=== PATIENT | female | born 1950 | race Caucasian/White ===

== ENCOUNTER → 2018-01-16 | Day surgery (SDC) | payer OTHER ==
[2018-01-09 13:27] VITALS: Ht 161.3 cm; Wt 78.2 kg
[~2018-01-16] VITALS: Ht 161.3 cm; Wt 78.2 kg
[~2018-01-16] MED LIST: APR25 PO; CALC0.2510 PO; CALC667C4 PO; CARV6.252 PO; CMD5 PO; FENTANYL CITRATE INJ 50 MCG/1 ML 2 ML VIAL ONE; INSDGI SC; ISOS30TA35 PO; LIDOCAINE HCL 2% 2 ML VIAL (20MG/ML) ONE; MIDAZOLAM HCL 1 MG/ML 2ML VIAL ONE; MINO50CA3 PO; MULT-506 PO; PROPOFOL IV EMULSION 10 MG/ML 20 ML VIAL IV ONE; TORS100T13 PO
[2018-01-16 09:48] VITALS: TEMP 36.6
--- NOTE | 2018-01-16 11:11 | Endo History and Physical ---
History & Physical Date of Service: Jan 16, 2018. Chief Complaint: history of polyps Referring Physician: Paula Cheung PA-C History of Present Illness h/o polyps Past Surgical History Hx Cardiac Surgery: Yes (HEART CATH/NO STENTS) Hx Internal Defibrillator: Yes (IMPLANTED) Hx Pacemaker: Yes (IMPLANTED) Hx Abdominal Surgery: Yes (GASTRIC BYPASS, APPENDECTOMY, CHOLECYSTECTOMY, BLEEDING ULCER CLIP) Hx Post-Op Nausea and Vomiting: Yes Hx Cancer Surgery: Yes (ERIKA BSO) Hx Thoracic Surgery: No Hx Orthopedic: Yes (RT CTR, RT SHOULDER ARTHROSCOPY) Hx Urinary Tract Surgery: No Family History Esophogeal CA Social History Smoking Status: Former Smoker Hx Substance Use: No Hx Alcohol Use: No Allergies Coded Allergies: Cerivastatin (Verified Allergy, Mild, JITTERY, 01/16/18) Doxycycline (Verified Allergy, Mild, STOMACH PAIN, 01/16/18) Acetaminophen (Verified Allergy, Unknown, SWELLING, 01/16/18) Cephalexin (Verified Allergy, Unknown, RASH, ITCHING, 01/16/18) Cholestyramine (Verified Allergy, Unknown, CONSTIPATION, 01/16/18) Colesevelam (Verified Allergy, Unknown, CONSTIPATION, 01/16/18) Ezetimibe (Verified Allergy, Unknown, PAINFUL LEGS, 01/16/18) Fenofibrate (Verified Allergy, Unknown, EDEMA AND MUSCLE PAIN, 01/16/18) Fentanyl (Verified Allergy, Unknown, N/V, 01/16/18) FENTANYL AND RELATED Gemfibrozil (Verified Allergy, Unknown, ROQUE, MUSCLE CRAMPS, PAIN, SWELLING , 01/16/18) Hydrocodone (Verified Allergy, Unknown, LETHARGY, 01/16/18) Lisinopril (Verified Allergy, Unknown, PANCREATITIS, 01/16/18) Losartan (Verified Allergy, Unknown, HIGH K LEVEL, 01/16/18) Lovastatin (Verified Allergy, Unknown, MUSCLE ACHES, 01/16/18) Niacin (Verified Allergy, Unknown, FLUSHING, 01/16/18) Oxycodone (Verified Allergy, Unknown, SWELLING, 01/16/18) Penicillins (Verified Allergy, Unknown, RASH, 01/16/18) [place] (Verified Allergy, Unknown, SNEEZING AND RASH, 01/16/18) Simvastatin (Verified Allergy, Unknown, SWELLING, MUSCLE ACHES, 01/16/18) Sitagliptin (Verified Allergy, Unknown, PALPITATIONS, 01/16/18) Tetanus Toxoid (Verified Allergy, Unknown, REDNESS/SWELLING AT INJ SITE, ) Tomato (Verified Allergy, Unknown, RASH, 01/16/18) Morphine (Verified Adverse Reaction, Unknown, VOMITING, 01/16/18) Uncoded Allergies: YELLOW JACKETS VENOM (Allergy, Mild, LOCALIZED SWELLING, 09/05/13) TYLENOL W/ CODEINE (Allergy, Unknown, ITCHING, SWELLING, 01/09/18) ADHESIVE TAPE (Adverse Reaction, Unknown, VERY FRAGILE SKIN, 01/09/18) Current Medications Reported Home Medications Medications Dose Route/Sig Max Daily Dose Days Date Category Dose Instructions Phoslo 667 Mg (Calcium Acetate) 667 Mg Cap 1 Cap PO BID 01/09/18 Reported Coumadin (Warfarin Sod) 5 Mg Tab 1 Tab PO DIRECTED 01/09/18 Reported TAKE 5MG 2XWEEKLY TAKES 1.5TAB 5X WEEKLY Demadex (Torsemide) 100 Mg Tab 100 Mg PO DAILY 01/09/18 Reported Multivitamin (Multivitamins) Tab 1 Tab PO QAM 01/09/18 Reported Minocycline Hcl 50 Mg Cap 1 Cap PO QAM 01/09/18 Reported Lantus (Insulin Glargine) 100 Unit/Ml Inj 10 Unit SC QAM 01/09/18 Reported Imdur Ext Rel (Isosorbide Mononitrate) 30 Mg Tabcr 1 Tab PO QAM 01/09/18 Reported Apresoline (Hydralazine Hcl) 25 Mg Tab 25 Mg PO TID 01/09/18 Reported Coreg (Carvedilol) 6.25 Mg Tab 6.25 Mg PO QAM 01/09/18 Reported Coreg (Carvedilol) 6.25 Mg Tab 2 Tab PO QPM 01/09/18 Reported Rocaltrol Cap (Calcitriol) 0.25 Mcg Cap 2 Cap PO QAM 09/06/13 Reported Vital Signs Weight (Kilograms): 78.18 Height (Feet): 5 Height (Inches): 3.5 Date Time Temp Pulse Resp B/P (MAP) Pulse Ox O2 Delivery O2 Flow Rate FiO2 01/16/18 09:48 36.6 78 20 182/75 (110) 98 Room Air Physical Exam General Appearance: WD/WN, no apparent distress Respiratory/Chest: Auscultation: breath sounds normal Cardiovascular: Heart Auscultation: RRR Abdomen: Inspection & Palpation: soft Assessment and Plan H/o polyps - cscopy
--- NOTE | 2018-01-16 12:04 | GI REPORT ---
Procedure Date: 01/16/2018 11:14 AM Procedure: Colonoscopy Indications: High risk colon cancer surveillance: Personal history of colonic polyps Medicines: See the Anesthesia note for documentation of the administered medications Complications: No immediate complications. Estimated Blood Loss: Estimated blood loss: none. Procedure: Pre-Anesthesia Assessment: - ASA Grade Assessment: IV - A patient with severe systemic disease that is a constant threat to life. After I obtained informed consent, the scope was passed under direct vision. Throughout the procedure, the patient's blood pressure, pulse, and oxygen saturations were monitored continuously. The scope was introduced through the anus and advanced to the cecum, identified by appendiceal orifice and ileocecal valve. The colonoscopy was somewhat difficult due to significant looping. The patient tolerated the procedure well. The quality of the bowel preparation was good. Findings: Hemorrhoids were found on perianal exam. Multiple small and large-mouthed diverticula were found in the entire colon. A 2 mm polyp was found in the cecum. The polyp was sessile. The polyp was removed with a cold biopsy forceps. Resection and retrieval were complete. A 5 mm polyp was found in the ascending colon. The polyp was sessile. The polyp was removed with a cold snare. Resection and retrieval were complete. The exam was otherwise without abnormality. Impression: - Hemorrhoids found on perianal exam. - Diverticulosis in the entire examined colon. - One 2 mm polyp in the cecum, removed with a cold biopsy forceps. Resected and retrieved. - One 5 mm polyp in the ascending colon, removed with a cold snare. Resected and retrieved. - The examination was otherwise normal. Recommendation: - Discharge patient to home. Repeat exam in 5 years, pending pathology review. Kylie Ramachandran M.D. Kylie Ramachandran MD 01/16/2018 12:04:19 PM This report has been signed electronically. Note Initiated On: 01/16/2018 11:14 AM I attest to the content of the Intraoperative Record and orders documented therein, exceptions below
--- NOTE | 2018-01-16 12:05 | Discharge Instructions ---
Endoscopy Patient Instructions Date / Procedure(s) Performed Jan 16, 2018. Colonoscopy Allergy Information Coded Allergies: Cerivastatin (Verified Allergy, Mild, JITTERY, 01/16/18) Doxycycline (Verified Allergy, Mild, STOMACH PAIN, 01/16/18) Acetaminophen (Verified Allergy, Unknown, SWELLING, 01/16/18) Cephalexin (Verified Allergy, Unknown, RASH, ITCHING, 01/16/18) Cholestyramine (Verified Allergy, Unknown, CONSTIPATION, 01/16/18) Colesevelam (Verified Allergy, Unknown, CONSTIPATION, 01/16/18) Ezetimibe (Verified Allergy, Unknown, PAINFUL LEGS, 01/16/18) Fenofibrate (Verified Allergy, Unknown, EDEMA AND MUSCLE PAIN, 01/16/18) Fentanyl (Verified Allergy, Unknown, N/V, 01/16/18) FENTANYL AND RELATED Gemfibrozil (Verified Allergy, Unknown, ROQUE, MUSCLE CRAMPS, PAIN, SWELLING , 01/16/18) Hydrocodone (Verified Allergy, Unknown, LETHARGY, 01/16/18) Lisinopril (Verified Allergy, Unknown, PANCREATITIS, 01/16/18) Losartan (Verified Allergy, Unknown, HIGH K LEVEL, 01/16/18) Lovastatin (Verified Allergy, Unknown, MUSCLE ACHES, 01/16/18) Niacin (Verified Allergy, Unknown, FLUSHING, 01/16/18) Oxycodone (Verified Allergy, Unknown, SWELLING, 01/16/18) Penicillins (Verified Allergy, Unknown, RASH, 01/16/18) [place] (Verified Allergy, Unknown, SNEEZING AND RASH, 01/16/18) Simvastatin (Verified Allergy, Unknown, SWELLING, MUSCLE ACHES, 01/16/18) Sitagliptin (Verified Allergy, Unknown, PALPITATIONS, 01/16/18) Tetanus Toxoid (Verified Allergy, Unknown, REDNESS/SWELLING AT INJ SITE, ) Tomato (Verified Allergy, Unknown, RASH, 01/16/18) Morphine (Verified Adverse Reaction, Unknown, VOMITING, 01/16/18) Uncoded Allergies: YELLOW JACKETS VENOM (Allergy, Mild, LOCALIZED SWELLING, 09/05/13) TYLENOL W/ CODEINE (Allergy, Unknown, ITCHING, SWELLING, 01/09/18) ADHESIVE TAPE (Adverse Reaction, Unknown, VERY FRAGILE SKIN, 01/09/18) Discharge Date / Findings Jan 16, 2018. Diverticulosis. Diminutive polyps. Medication Instructions Stopped Medication(s): last dose Warfarin January 10 Restart Stopped Medication(s): Resume warfarin today. Provider Instructions Activity Restrictions - No exercising or heavy lifting for 24 hours. - Do not drink alcohol the day of the procedure. - Do not drive a car or operate machinery until the day after the procedure. - Do not make any important decisions or sign important papers in 24 hours after the procedure. Following Day: - Return to full activity which may include returning to work/school. Diet Start your diet with liquids and light foods (jello, soup, juice, toast). Then eat your usual diet if not nauseated. Treatment For Common After Affects For mild abdominal pain, bloating, or excessive gas: - Rest - Eat lightly - Lie on right side Follow-Up Information Follow-up with Paula Cheung PA-C as scheduled Anesthesia Information What You Should Know You have had a procedure that required some medicine to reduce anxiety and discomfort. This treatment is called moderate sedation. After receiving the treatment, you may be sleepy, but you will be able to breathe on your own. The effects of the treatment may last for several hours. Follow these instructions along with Activity/Diet recommendations noted above: * Do NOT do anything where dizziness or clumsiness would be dangerous. * Rest quietly at home today, then you can be up and about tomorrow. * Have a responsible person stay with you the rest of today. * You may have had an I.V. today. If so, you may take the dressing off later today. Recommendations Call your doctor if: * Trouble breathing * Continuous vomiting for more than 24 hours * Temperature above 101 degrees * Severe abdominal pain or bloating * Pain not relieved by pain medicine ordered * There is increased drainage or redness from any incision * A large amount of rectal bleeding greater than 2-3 tablespoons. (If you had a polyp/s removed or have hemorrhoids, a small amount of blood - from the rectum is to be expected.) * You have any unanswered questions or concerns. IN THE EVENT OF A SERIOUS EMERGENCY, GO TO THE NEAREST EMERGENCY ROOM Your discharge instructions were prepared by provider Kylie Borrego. Patient Instructions Signature Page Adrianna Quintana Patient (or Guardian) Signature/Date: I have read and understand the instructions given to me by my caregivers. Caregiver/RN/Doctor Signature/Date: The above-named patient and/or guardian has received patient instructions on this date. + Original Patient Signature Page (only) stays with chart. Please make copy for patient.
[2018-01-16 12:28] VITALS: BP 165/72; PULSE 66; O2SAT 98
--- NOTE | 2018-01-16 12:37 | Anesthesiology Progress Note ---
Anesthesia Post Op Note Date & Time Jan 16, 2018 at 12:37 Vital Signs Pain Intensity: 0 Vital Signs Past 12 Hours Date Time Temp Pulse Resp B/P (MAP) Pulse Ox O2 Delivery O2 Flow Rate FiO2 01/16/18 12:28 66 18 165/72 (103) 98 Room Air 01/16/18 12:13 72 16 164/75 (104) 99 Room Air 01/16/18 11:58 79 14 138/68 (91) 100 Room Air 01/16/18 09:48 36.6 78 20 182/75 (110) 98 Room Air Notes Mental Status: alert / awake / arousable, participated in evaluation Pt Amnestic to Procedure: Yes Nausea / Vomiting: adequately controlled Pain: adequately controlled Airway Patency, RR, SpO2: stable & adequate BP & HR: stable & adequate Hydration State: stable & adequate Anesthetic Complications: no major complications apparent
== END | disposition home or self-care (01) ==
LOC: C.GI 09:15
PROVIDERS: ATTEND Internal Medicine Gastroenterology
DX: Z12.11 Encounter for screening for malignant neoplasm of colon (principal); Z86.010 Personal history of colon polyps; K57.30 Diverticulosis of large intestine without perforation or abscess without bleeding; K64.9 Unspecified hemorrhoids; D12.0 Benign neoplasm of cecum; D12.2 Benign neoplasm of ascending colon; I48.91 Unspecified atrial fibrillation; I25.10 Atherosclerotic heart disease of native coronary artery without angina pectoris; E11.9 Type 2 diabetes mellitus without complications; Z98.51 Tubal ligation status; Z90.89 Acquired absence of other organs; Z90.49 Acquired absence of other specified parts of digestive tract; Z90.710 Acquired absence of both cervix and uterus; Z80.0 Family history of malignant neoplasm of digestive organs; Z87.891 Personal history of nicotine dependence; Z88.1 Allergy status to other antibiotic agents; Z88.6 Allergy status to analgesic agent; Z88.5 Allergy status to narcotic agent; Z88.0 Allergy status to penicillin; Z91.048 Other nonmedicinal substance allergy status; Z79.01 Long term (current) use of anticoagulants; Z86.73 Personal history of transient ischemic attack (TIA), and cerebral infarction without residual deficits; N18.9 Chronic kidney disease, unspecified; Z99.2 Dependence on renal dialysis; Z85.42 Personal history of malignant neoplasm of other parts of uterus